=== PATIENT | male | born 1960 | race Caucasian/White ===

== ENCOUNTER 2018-04-25 20:30 | Outpatient (CLI) | payer OTHER | END 2018-04-25 20:31 | disposition home or self-care (01) | LOC: SLEEPLAB 20:30 | PROVIDERS: ATTEND Family Medicine | DX: G47.33 Obstructive sleep apnea (adult) (pediatric) (principal); R53.83 Other fatigue; R51 Headache; E66.9 Obesity, unspecified; E11.9 Type 2 diabetes mellitus without complications | CPT/HCPCS: 95811 ==

== ENCOUNTER 2022-07-11 05:36 | Day surgery (SDC) | payer BC ==
[2022-07-09 12:40] VITALS: BMI 45.9
[2022-07-11] MEDS ORDERED: Lidocaine 1% MPF 2 ML VIAL ONE (08:19)
[2022-07-11] MEDS ORDERED: PROPOFOL 200 MG/20 ML VIAL ONE (08:19)
== END 2022-07-11 09:50 | disposition home or self-care (01) ==
LOC: SDC 05:36
PROVIDERS: ATTEND Internal Medicine Gastroenterology
PROC: 0DBP8ZX Excision of Rectum, Via Natural or Artificial Opening Endoscopic, Diagnostic (ICD-10-PCS; principal; 2022-07-11)
PROC: 0DBH8ZX Excision of Cecum, Via Natural or Artificial Opening Endoscopic, Diagnostic (ICD-10-PCS; principal; 2022-07-11)
PROC: 0DBL8ZX Excision of Transverse Colon, Via Natural or Artificial Opening Endoscopic, Diagnostic (ICD-10-PCS; principal; 2022-07-11)
PROC: 0DBK8ZX Excision of Ascending Colon, Via Natural or Artificial Opening Endoscopic, Diagnostic (ICD-10-PCS; principal; 2022-07-11)
DX: Z12.11 Encounter for screening for malignant neoplasm of colon (principal); D12.0 Benign neoplasm of cecum; D12.2 Benign neoplasm of ascending colon; D12.3 Benign neoplasm of transverse colon; K62.1 Rectal polyp; K57.30 Diverticulosis of large intestine without perforation or abscess without bleeding; E11.9 Type 2 diabetes mellitus without complications; Z87.891 Personal history of nicotine dependence; Z79.899 Other long term (current) drug therapy; Z88.8 Allergy status to other drugs, medicaments and biological substances
CPT/HCPCS: 88305; J2704